=== PATIENT | female | born 1935 | race African-American/Black ===

== ENCOUNTER → 2017-01-26 | Outpatient (CLI) | payer MEDICARE, MEDICAID ==
[~2017-01-26] MED LIST: ALBU2.5V13 IH; ASPI-1035; ASPI-1073 PO; ATOR20TA; BUME2TAB3; CELE200C; COLC0.6T66; FLUT1DIS3 IH; MONT10TA21; POTA20TA34; PVCXPC; TAM75 PO; TIOT18CA3 IH
[2017-01-26 14:48] LABS: HEMATOCRIT. 34.7 % (36.0-48.0); HEMOGLOBIN. 11.5 g/dL (12.0-16.0); MEAN CORPUSCULAR HEMOGLOBIN 29.9 pg (28.0-32.0); MEAN CORPUSCULAR HGB CONC 33.1 g/dL (31.0-37.0); MEAN CORPUSCULAR VOLUME 90.4 fL (81.0-99.0); MEAN PLATELET VOLUME 7.5 fl (7.4-10.4); PLATELET 192 x1000/uL (130-400); RED BLOOD CELL COUNT 3.83 mill/uL (4.2-5.4); RED CELL DISTRIBUTION WIDTH 14.2 % (11.6-14.6); WHITE BLOOD COUNT 3.7 x1000/uL (4.5-11.0)
[2017-01-26 14:49] LABS: DIFFERENTIAL COMMENT 1
[2017-01-26 15:03] LABS: BG BASE EXCESS 0.2 mmol/L (-2.0-2.0); BG CARBOXYHEMOGLOBIN 0.3 % (0.5-1.5); BG DEOXYHEMOGLOBIN 2.9 % (0.0-5.0); BG FRACTION INSPIRED OXYGEN 21; BG HCO3 ACT 24.6 mmol/L (22.0-26.0); BG METHEMOGLOBIN 0.3 % (0.0-1.5); BG OXYGEN SATURATION 97.1 % (92.0-98.5); BG OXYHEMOGLOBIN 96.5 % (94.0-97.0); BG PH 7.418 (7.350-7.450); BG PO2 92.7 mmHg (75.0-100.0); BG SAMPLE SITE RIGHT RADIAL; BG VENT MODE ROOM AIR
[2017-01-26 15:24] LABS: ALANINE AMINOTRANSFERASE 21 IU/L (13-61); ALBUMIN 3.4 g/dL (3.4-5.0); ANION GAP 12; CALCIUM 8.9 mg/dL (8.5-10.1); CARBON DIOXIDE 28 mEq/L (21-32); CHLORIDE 99 mEq/L (98-107); INDEX HEMOLYSI 1 (1-3); INDEX ICTERIC 1 (1-4); INDEX LIPEMIC 1 (1-3); UREA NITROGEN BLOOD 11 mg/dL (7-21); eGFR > 60 mL/min (>60)
[2017-01-26 15:39] LABS: PLATELET ESTIMATE NORMAL
== END | disposition home or self-care (01) ==
LOC: PF 14:06
PROVIDERS: ATTEND Internal Medicine Pulmonary Disease
DX: J45.909 Unspecified asthma, uncomplicated (principal); M81.0 Age-related osteoporosis without current pathological fracture; F03.90 Unspecified dementia, unspecified severity, without behavioral disturbance, psychotic disturbance, mood disturbance, and anxiety; J84.112 Idiopathic pulmonary fibrosis
CPT/HCPCS: 36415; 36600; 80053; 82375; 82805; 85025

== ENCOUNTER 2018-09-23 14:28 | Inpatient (IN) | payer MEDICARE, MEDICAID ==
[~2018-09-23] VITALS: Ht 157.5 cm; Wt 74.8 kg
[~2018-09-23 14:28] MED LIST changes: -ASPI-1035; +ASPI-1158
[2018-09-23] MEDS ORDERED: ONDANSETRON HCL 4MG TABLET PO PRN (16:30)
[2018-09-23] MEDS ORDERED: ACETAMINOPHEN 650MG/20.3ML UDC PO PRN (16:30)
[2018-09-23] MEDS ORDERED: CLONIDINE 0.1MG TABLET PO PRN (16:30)
[2018-09-23] MEDS: DOCUSATE SODIUM 100MG CAPSULE PO SCH (17:57)
[2018-09-23] MEDS: HYDROCODONE/ACETAMINOPHEN 5/325MG TABLET PO PRN ×2 (17:58→22:46)
[2018-09-23 18:05] VITALS: BP 123/47
[2018-09-23 18:07] VITALS: BP 123/47
[2018-09-23] MEDS ORDERED: BISACODYL 5MG TABLET PO PRN (18:45)
[2018-09-23] MEDS ORDERED: DOCUSATE SODIUM 100MG CAPSULE PO SCH (19:00)
[2018-09-23 20:00] VITALS: BP 132/61
[2018-09-23] MEDS ORDERED: NA PHOS,M-B/NA PHOS,DI-BA ENEMA 118ML PR PRN (21:00)
[2018-09-23] MEDS ORDERED: CEFOXITIN SODIUM 1 G in DEXTROSE 5% WATER 50 ML IV SCH (21:00)
[2018-09-23] MEDS: CEFOXITIN SODIUM 1 G in DEXTROSE 5% WATER 50 ML IV SCH (21:18)
[2018-09-24] MEDS: CEFOXITIN SODIUM 1 G in DEXTROSE 5% WATER 50 ML IV SCH ×3 (05:19→21:29)
[2018-09-24 08:00] VITALS: BP 117/43
[2018-09-24] MEDS ORDERED: FAMOTIDINE 20MG TABLET PO ONE (09:00)
[2018-09-24] MEDS ORDERED: ENOXAPARIN 40MG/0.4ML SYR SUBCUT SCH (09:00)
[2018-09-24] MEDS ORDERED: ENOXAPARIN 40MG/0.4ML SYR SUBCUT ONE (09:00)
[2018-09-24] MEDS: MEMANTINE HCL 5MG TABLET PO SCH (09:20)
[2018-09-24] MEDS: FAMOTIDINE 20MG TABLET PO SCH (09:21)
[2018-09-24] MEDS: DOCUSATE SODIUM 100MG CAPSULE PO SCH ×2 (09:21→17:32)
[2018-09-24] MEDS: HYDROCODONE/ACETAMINOPHEN 5/325MG TABLET PO PRN ×2 (09:22→21:29)
[2018-09-24 12:05] LABS: HEMATOCRIT. 26.2 % (36.0-48.0); HEMOGLOBIN. 8.8 g/dL (12.0-16.0); MEAN CORPUSCULAR HEMOGLOBIN 28.8 pg (28.0-32.0); MEAN CORPUSCULAR VOLUME 85.8 fL (81.0-99.0); PLATELET 230 x1000/uL (130-400); RED BLOOD CELL COUNT 3.05 mill/uL (4.2-5.4); RED CELL DISTRIBUTION WIDTH 16.1 % (11.6-14.6)
[2018-09-24 12:43] LABS: CHLORIDE 97 mEq/L (98-107)
[2018-09-24] MEDS: ENOXAPARIN 40MG/0.4ML SYR SUBCUT SCH (14:00)
[2018-09-24 14:35] LABS: PLATELET ESTIMATE NORMAL
[2018-09-24 14:41] LABS: CLARITY URINE CLEAR (CLEAR); COLOR URINE YELLOW (YELLOW); KETONES URINE NEGATIVE (NEGATIVE); LEUKOCYTE ESTERASE URINE NEGATIVE (NEGATIVE); NITRITE URINE NEGATIVE (NEGATIVE); OCCULT BLOOD URINE NEGATIVE (NEGATIVE); PH URINE 7.5 (4.5-8.0); PROTEIN URINE NEGATIVE (NEGATIVE); SPECIFIC GRAVITY URINE 1.012 (1.005-1.030)
[2018-09-24 20:00] VITALS: BP 154/58
[2018-09-25] MEDS: CEFOXITIN SODIUM 1 G in DEXTROSE 5% WATER 50 ML IV SCH ×3 (06:00→21:40)
[2018-09-25 08:02] VITALS: BP 144/56
[2018-09-25] MEDS: MEMANTINE HCL 5MG TABLET PO SCH (09:38)
[2018-09-25] MEDS: FAMOTIDINE 20MG TABLET PO SCH ×2 (09:38→21:40)
[2018-09-25] MEDS: DOCUSATE SODIUM 100MG CAPSULE PO SCH ×2 (09:38→17:52)
[2018-09-25] MEDS: HYDROCODONE/ACETAMINOPHEN 5/325MG TABLET PO PRN ×2 (09:45→20:18)
[2018-09-25] MEDS ORDERED: DONEPEZIL HCL 10MG TABLET PO NR (09:45)
[2018-09-25] MEDS ORDERED: CALCIUM CARBONATE 500MG TABLET CHEW PO NR (09:45)
[2018-09-25] MEDS: ERGOCALCIFEROL 50000UNITS CAPSULE PO SCH (11:34)
[2018-09-25] MEDS: IPRATROPIUM/ALBUTEROL 0.5-3(2.5)MG/3ML NEB HHN SCH ×2 (13:08→20:47)
[2018-09-25] MEDS: ENOXAPARIN 40MG/0.4ML SYR SUBCUT SCH (13:39)
[2018-09-25] MEDS: MONTELUKAST SODIUM 10MG TABLET PO SCH (17:52)
[2018-09-25] MEDS: CALCIUM CARBONATE 500MG TABLET CHEW PO SCH (17:53)
[2018-09-25 18:02] LABS: HEMATOCRIT. 29.7 % (36.0-48.0); MEAN CORPUSCULAR HEMOGLOBIN 29.2 pg (28.0-32.0); MEAN CORPUSCULAR VOLUME 86.4 fL (81.0-99.0); MEAN PLATELET VOLUME 7.4 fl (7.4-10.4); PLATELET 285 x1000/uL (130-400); RED BLOOD CELL COUNT 3.43 mill/uL (4.2-5.4)
[2018-09-25 18:10] LABS: CHLORIDE 98 mEq/L (98-107)
[2018-09-25 19:12] LABS: PLATELET ESTIMATE NORMAL
[2018-09-25 20:00] VITALS: BP 143/55
[2018-09-25] MEDS ORDERED: MAGNESIUM/ALUMINUM HYDROXIDE/SIMETHICONE 30ML UDC PO PRN (20:00)
[2018-09-25] MEDS ORDERED: ZOLPIDEM TARTRATE 5MG TABLET PO PRN (21:00)
[2018-09-25] MEDS: MEMANTINE HCL 10MG TABLET PO SCH (21:39)
[2018-09-26] MEDS: IPRATROPIUM/ALBUTEROL 0.5-3(2.5)MG/3ML NEB HHN SCH ×4 (01:43→22:41)
[2018-09-26] MEDS: CEFOXITIN SODIUM 1 G in DEXTROSE 5% WATER 50 ML IV SCH ×4 (05:43→21:00)
[2018-09-26 08:13] VITALS: BP 131/47
[2018-09-26] MEDS: CALCIUM CARBONATE 500MG TABLET CHEW PO SCH ×2 (08:16→17:27)
[2018-09-26] MEDS: DOCUSATE SODIUM 100MG CAPSULE PO SCH ×2 (08:16→17:27)
[2018-09-26] MEDS: MEMANTINE HCL 10MG TABLET PO SCH ×2 (08:17→20:55)
[2018-09-26] MEDS: MULTIVITAMINS,THER W-MINERALS TABLET PO SCH (08:17)
[2018-09-26] MEDS: FAMOTIDINE 20MG TABLET PO SCH ×2 (08:18→20:55)
[2018-09-26] MEDS: DONEPEZIL HCL 10MG TABLET PO SCH (08:18)
[2018-09-26] MEDS: HYDROCODONE/ACETAMINOPHEN 5/325MG TABLET PO PRN (08:27)
[2018-09-26] MEDS ORDERED: LACTULOSE 20G/30ML UDC PO SCH (09:15)
[2018-09-26] MEDS ORDERED: LACTULOSE 20G/30ML UDC PO PRN (09:15)
[2018-09-26] MEDS ORDERED: NA PHOS,M-B/NA PHOS,DI-BA ENEMA 118ML PR SCH (09:15)
[2018-09-26] MEDS: ENOXAPARIN 40MG/0.4ML SYR SUBCUT SCH (14:21)
[2018-09-26] MEDS: MONTELUKAST SODIUM 10MG TABLET PO SCH (17:27)
[2018-09-26 20:00] VITALS: BP 118/40
[2018-09-27] MEDS: IPRATROPIUM/ALBUTEROL 0.5-3(2.5)MG/3ML NEB HHN SCH ×4 (03:52→19:53)
[2018-09-27] MEDS: CEFOXITIN SODIUM 1 G in DEXTROSE 5% WATER 50 ML IV SCH ×3 (06:01→21:04)
[2018-09-27] MEDS: HYDROCODONE/ACETAMINOPHEN 5/325MG TABLET PO PRN ×2 (06:13→21:03)
[2018-09-27 07:57] VITALS: BP 133/45
[2018-09-27 09:26] LABS: CHLORIDE 97 mEq/L (98-107)
[2018-09-27] MEDS: COLCHICINE 0.6MG TABLET PO SCH (09:26)
[2018-09-27] MEDS: DONEPEZIL HCL 10MG TABLET PO SCH (09:26)
[2018-09-27] MEDS: MEMANTINE HCL 10MG TABLET PO SCH ×2 (09:26→21:04)
[2018-09-27] MEDS: CALCIUM CARBONATE 500MG TABLET CHEW PO SCH ×2 (09:27→17:39)
[2018-09-27] MEDS: DOCUSATE SODIUM 100MG CAPSULE PO SCH ×2 (09:27→17:39)
[2018-09-27] MEDS: MULTIVITAMINS,THER W-MINERALS TABLET PO SCH (09:27)
[2018-09-27] MEDS: FAMOTIDINE 20MG TABLET PO SCH ×2 (09:27→21:04)
[2018-09-27 13:18] LABS: HEMATOCRIT. 28.2 % (36.0-48.0); HEMOGLOBIN. 9.7 g/dL (12.0-16.0); MEAN CORPUSCULAR HEMOGLOBIN 29.6 pg (28.0-32.0); MEAN CORPUSCULAR VOLUME 86.2 fL (81.0-99.0); MEAN PLATELET VOLUME 7.4 fl (7.4-10.4); PLATELET 339 x1000/uL (130-400); RED BLOOD CELL COUNT 3.28 mill/uL (4.2-5.4)
[2018-09-27] MEDS: ENOXAPARIN 40MG/0.4ML SYR SUBCUT SCH (13:37)
[2018-09-27] MEDS: INDOMETHACIN 25MG CAPSULE PO SCH ×2 (14:33→21:03)
[2018-09-27 17:38] LABS: PLATELET ESTIMATE NORMAL
[2018-09-27] MEDS: MONTELUKAST SODIUM 10MG TABLET PO SCH (17:39)
[2018-09-27 20:00] VITALS: BP 120/36
[2018-09-28] MEDS: IPRATROPIUM/ALBUTEROL 0.5-3(2.5)MG/3ML NEB HHN SCH ×4 (01:37→20:42)
[2018-09-28] MEDS: INDOMETHACIN 25MG CAPSULE PO SCH ×3 (05:58→21:01)
[2018-09-28] MEDS: CEFOXITIN SODIUM 1 G in DEXTROSE 5% WATER 50 ML IV SCH ×3 (05:58→21:02)
[2018-09-28 08:00] VITALS: BP 135/51
[2018-09-28] MEDS ORDERED: HYDROCODONE/ACETAMINOPHEN 5/325MG TABLET PO PRN (08:30)
[2018-09-28] MEDS ORDERED: GUAIFENESIN 200MG/10ML SUGAR FREE UDC PO PRN (09:30)
[2018-09-28] MEDS: MULTIVITAMINS,THER W-MINERALS TABLET PO SCH (09:36)
[2018-09-28] MEDS: CALCIUM CARBONATE 500MG TABLET CHEW PO SCH ×2 (09:36→18:21)
[2018-09-28] MEDS: MEMANTINE HCL 10MG TABLET PO SCH ×2 (09:36→21:01)
[2018-09-28] MEDS: COLCHICINE 0.6MG TABLET PO SCH (09:36)
[2018-09-28] MEDS: DONEPEZIL HCL 10MG TABLET PO SCH (09:36)
[2018-09-28] MEDS: FAMOTIDINE 20MG TABLET PO SCH ×2 (09:36→21:01)
[2018-09-28] MEDS: DOCUSATE SODIUM 100MG CAPSULE PO SCH ×2 (09:36→18:21)
[2018-09-28] MEDS: BENZONATATE 100MG CAPSULE PO SCH ×2 (11:24→18:20)
[2018-09-28] MEDS: ENOXAPARIN 40MG/0.4ML SYR SUBCUT SCH (13:00)
[2018-09-28] MEDS: MONTELUKAST SODIUM 10MG TABLET PO SCH (18:21)
[2018-09-28 20:00] VITALS: BP 137/49
[2018-09-29] MEDS: IPRATROPIUM/ALBUTEROL 0.5-3(2.5)MG/3ML NEB HHN SCH ×4 (01:45→21:43)
[2018-09-29] MEDS: BENZONATATE 100MG CAPSULE PO SCH ×3 (01:52→17:47)
[2018-09-29] MEDS: INDOMETHACIN 25MG CAPSULE PO SCH ×3 (05:11→21:25)
[2018-09-29] MEDS: HYDROCODONE/ACETAMINOPHEN 5/325MG TABLET PO PRN (06:49)
[2018-09-29 08:00] VITALS: BP 126/47
[2018-09-29] MEDS: CALCIUM CARBONATE 500MG TABLET CHEW PO SCH ×2 (09:11→17:47)
[2018-09-29] MEDS: MEMANTINE HCL 10MG TABLET PO SCH ×2 (09:11→20:12)
[2018-09-29] MEDS: DONEPEZIL HCL 10MG TABLET PO SCH (09:11)
[2018-09-29] MEDS: MULTIVITAMINS,THER W-MINERALS TABLET PO SCH (09:11)
[2018-09-29] MEDS: FAMOTIDINE 20MG TABLET PO SCH ×2 (09:11→20:12)
[2018-09-29] MEDS: DOCUSATE SODIUM 100MG CAPSULE PO SCH ×2 (09:12→17:47)
[2018-09-29] MEDS: COLCHICINE 0.6MG TABLET PO SCH (09:16)
[2018-09-29] MEDS: ENOXAPARIN 40MG/0.4ML SYR SUBCUT SCH (13:34)
[2018-09-29] MEDS: MONTELUKAST SODIUM 10MG TABLET PO SCH (17:47)
[2018-09-29 20:00] VITALS: BP 126/43
[2018-09-30] MEDS: BENZONATATE 100MG CAPSULE PO SCH ×3 (01:16→17:02)
[2018-09-30] MEDS: IPRATROPIUM/ALBUTEROL 0.5-3(2.5)MG/3ML NEB HHN SCH ×4 (01:57→21:21)
[2018-09-30] MEDS: INDOMETHACIN 25MG CAPSULE PO SCH ×3 (05:14→21:02)
[2018-09-30 08:10] VITALS: BP 138/48
[2018-09-30] MEDS: CALCIUM CARBONATE 500MG TABLET CHEW PO SCH ×2 (09:33→17:02)
[2018-09-30] MEDS: MEMANTINE HCL 10MG TABLET PO SCH ×2 (09:34→21:02)
[2018-09-30] MEDS: COLCHICINE 0.6MG TABLET PO SCH (09:34)
[2018-09-30] MEDS: DOCUSATE SODIUM 100MG CAPSULE PO SCH ×2 (09:34→17:02)
[2018-09-30] MEDS: DONEPEZIL HCL 10MG TABLET PO SCH (09:34)
[2018-09-30] MEDS: FAMOTIDINE 20MG TABLET PO SCH ×2 (09:34→21:02)
[2018-09-30] MEDS: MULTIVITAMINS,THER W-MINERALS TABLET PO SCH (09:35)
[2018-09-30] MEDS: ENOXAPARIN 40MG/0.4ML SYR SUBCUT SCH (14:42)
[2018-09-30] MEDS: MONTELUKAST SODIUM 10MG TABLET PO SCH (17:02)
[2018-09-30 20:00] VITALS: BP_SYST 123; BP_SYST 126; BP_DIAS 30; BP_DIAS 39
[2018-09-30] MEDS: HYDROCODONE/ACETAMINOPHEN 5/325MG TABLET PO PRN (23:45)
[2018-10-01] MEDS: BENZONATATE 100MG CAPSULE PO SCH ×3 (02:30→17:04)
[2018-10-01] MEDS: IPRATROPIUM/ALBUTEROL 0.5-3(2.5)MG/3ML NEB HHN SCH ×4 (03:49→21:30)
[2018-10-01] MEDS: INDOMETHACIN 25MG CAPSULE PO SCH ×3 (06:01→22:01)
[2018-10-01 07:47] LABS: HEMATOCRIT. 24.9 % (36.0-48.0); HEMOGLOBIN. 8.5 g/dL (12.0-16.0); MEAN CORPUSCULAR HEMOGLOBIN 29.1 pg (28.0-32.0); MEAN CORPUSCULAR VOLUME 85.6 fL (81.0-99.0); MEAN PLATELET VOLUME 6.9 fl (7.4-10.4); PLATELET 367 x1000/uL (130-400); RED BLOOD CELL COUNT 2.91 mill/uL (4.2-5.4); RED CELL DISTRIBUTION WIDTH 16.1 % (11.6-14.6)
[2018-10-01 07:49] LABS: CHLORIDE 98 mEq/L (98-107)
[2018-10-01 08:00] VITALS: BP 136/46
[2018-10-01] MEDS: MEMANTINE HCL 10MG TABLET PO SCH ×2 (09:29→22:01)
[2018-10-01] MEDS: FAMOTIDINE 20MG TABLET PO SCH ×2 (09:29→22:00)
[2018-10-01] MEDS: DOCUSATE SODIUM 100MG CAPSULE PO SCH ×2 (09:29→17:04)
[2018-10-01] MEDS: DONEPEZIL HCL 10MG TABLET PO SCH (09:29)
[2018-10-01] MEDS: COLCHICINE 0.6MG TABLET PO SCH (09:29)
[2018-10-01] MEDS: MULTIVITAMINS,THER W-MINERALS TABLET PO SCH (09:29)
[2018-10-01] MEDS: CALCIUM CARBONATE 500MG TABLET CHEW PO SCH ×2 (09:29→17:04)
[2018-10-01 10:50] LABS: PLATELET ESTIMATE NORMAL
[2018-10-01] MEDS: ENOXAPARIN 40MG/0.4ML SYR SUBCUT SCH (13:20)
[2018-10-01] MEDS: MONTELUKAST SODIUM 10MG TABLET PO SCH (17:04)
[2018-10-01 20:00] VITALS: BP 136/56
[2018-10-02] MEDS: IPRATROPIUM/ALBUTEROL 0.5-3(2.5)MG/3ML NEB HHN SCH ×4 (01:54→21:36)
[2018-10-02] MEDS: BENZONATATE 100MG CAPSULE PO SCH ×3 (02:44→17:01)
[2018-10-02] MEDS: INDOMETHACIN 25MG CAPSULE PO SCH ×3 (06:38→21:34)
[2018-10-02 07:56] VITALS: BP 142/48
[2018-10-02] MEDS: COLCHICINE 0.6MG TABLET PO SCH ×2 (09:31→16:41)
[2018-10-02] MEDS: CALCIUM CARBONATE 500MG TABLET CHEW PO SCH ×2 (09:31→16:23)
[2018-10-02] MEDS: FAMOTIDINE 20MG TABLET PO SCH ×2 (09:31→21:35)
[2018-10-02] MEDS: MEMANTINE HCL 10MG TABLET PO SCH ×2 (09:31→21:35)
[2018-10-02] MEDS: MULTIVITAMINS,THER W-MINERALS TABLET PO SCH (09:31)
[2018-10-02] MEDS: DONEPEZIL HCL 10MG TABLET PO SCH (09:31)
[2018-10-02] MEDS: DOCUSATE SODIUM 100MG CAPSULE PO SCH ×2 (09:31→16:23)
[2018-10-02] MEDS: ERGOCALCIFEROL 50000UNITS CAPSULE PO SCH (09:49)
[2018-10-02] MEDS: LIDOCAINE HCL 4% CREAM 76GM TUBE TP SCH ×2 (10:46→16:39)
[2018-10-02 15:50] LABS: HEMATOCRIT. 28.3 % (36.0-48.0); HEMOGLOBIN. 9.5 g/dL (12.0-16.0); MEAN CORPUSCULAR HEMOGLOBIN 28.9 pg (28.0-32.0); MEAN CORPUSCULAR VOLUME 85.8 fL (81.0-99.0); MEAN PLATELET VOLUME 6.9 fl (7.4-10.4); PLATELET 419 x1000/uL (130-400); RED BLOOD CELL COUNT 3.29 mill/uL (4.2-5.4)
[2018-10-02 15:55] LABS: CHLORIDE 95 mEq/L (98-107)
[2018-10-02 16:03] LABS: TOTAL IRON BINDING CAPACITY 293 ug/dL (250-450)
[2018-10-02 16:17] LABS: PLATELET ESTIMATE INCREASED
[2018-10-02] MEDS: MONTELUKAST SODIUM 10MG TABLET PO SCH (16:23)
[2018-10-02 20:00] VITALS: BP 132/44
[2018-10-03] MEDS: BENZONATATE 100MG CAPSULE PO SCH ×4 (01:56→22:06)
[2018-10-03] MEDS: IPRATROPIUM/ALBUTEROL 0.5-3(2.5)MG/3ML NEB HHN SCH ×4 (02:14→20:51)
[2018-10-03] MEDS: INDOMETHACIN 25MG CAPSULE PO SCH ×3 (06:09→22:05)
[2018-10-03 08:00] VITALS: BP 146/54
[2018-10-03] MEDS: MULTIVITAMINS,THER W-MINERALS TABLET PO SCH (08:49)
[2018-10-03] MEDS: DONEPEZIL HCL 10MG TABLET PO SCH (08:49)
[2018-10-03] MEDS: FAMOTIDINE 20MG TABLET PO SCH ×2 (08:49→22:05)
[2018-10-03] MEDS: CALCIUM CARBONATE 500MG TABLET CHEW PO SCH ×2 (08:49→17:04)
[2018-10-03] MEDS: COLCHICINE 0.6MG TABLET PO SCH ×2 (08:50→17:05)
[2018-10-03] MEDS: MEMANTINE HCL 10MG TABLET PO SCH ×2 (08:50→22:06)
[2018-10-03] MEDS: DOCUSATE SODIUM 100MG CAPSULE PO SCH ×2 (08:50→17:05)
[2018-10-03] MEDS: LIDOCAINE HCL 4% CREAM 76GM TUBE TP SCH ×2 (08:51→17:05)
[2018-10-03 09:07] LABS: BASOPHILS % 0.7 % (0.0-2.0); EOSINOPHILS % 0.3 % (0.0-5.0); HEMATOCRIT. 31.6 % (36.0-48.0); HEMOGLOBIN. 10.7 g/dL (12.0-16.0); LYMPHOCYTES % 26.2 % (20.0-50.0); MEAN CORPUSCULAR HEMOGLOBIN 29.2 pg (28.0-32.0); MEAN CORPUSCULAR VOLUME 86.5 fL (81.0-99.0); MEAN PLATELET VOLUME 6.9 fl (7.4-10.4); MONOCYTES % 13.4 % (2.0-8.0); NEUTROPHILS % 59.4 % (40.0-76.0); PLATELET 467 x1000/uL (130-400); RED BLOOD CELL COUNT 3.65 mill/uL (4.2-5.4); RED CELL DISTRIBUTION WIDTH 16.2 % (11.6-14.6)
[2018-10-03 09:17] LABS: CHLORIDE 97 mEq/L (98-107)
[2018-10-03 13:16] VITALS: BP_SYST 121; BP_SYST 161; BP_DIAS 52
[2018-10-03] MEDS: MONTELUKAST SODIUM 10MG TABLET PO SCH (17:05)
[2018-10-03 20:00] VITALS: BP 145/59
[2018-10-04] MEDS: IPRATROPIUM/ALBUTEROL 0.5-3(2.5)MG/3ML NEB HHN SCH ×4 (02:09→21:38)
[2018-10-04] MEDS: INDOMETHACIN 25MG CAPSULE PO SCH ×3 (05:50→20:57)
[2018-10-04 08:04] VITALS: BP 141/39
[2018-10-04] MEDS: LIDOCAINE HCL 4% CREAM 76GM TUBE TP SCH ×2 (09:00→17:00)
[2018-10-04] MEDS: BENZONATATE 100MG CAPSULE PO SCH ×2 (09:19→18:07)
[2018-10-04] MEDS: FAMOTIDINE 20MG TABLET PO SCH ×2 (09:19→20:57)
[2018-10-04] MEDS: DOCUSATE SODIUM 100MG CAPSULE PO SCH ×2 (09:19→18:07)
[2018-10-04] MEDS: MEMANTINE HCL 10MG TABLET PO SCH ×2 (09:19→20:57)
[2018-10-04] MEDS: DONEPEZIL HCL 10MG TABLET PO SCH (09:19)
[2018-10-04] MEDS: MULTIVITAMINS,THER W-MINERALS TABLET PO SCH (09:19)
[2018-10-04] MEDS: CALCIUM CARBONATE 500MG TABLET CHEW PO SCH ×2 (09:19→18:07)
[2018-10-04] MEDS: COLCHICINE 0.6MG TABLET PO SCH ×2 (09:19→18:07)
[2018-10-04] MEDS: MONTELUKAST SODIUM 10MG TABLET PO SCH (18:07)
[2018-10-04 20:00] VITALS: BP 146/72
[2018-10-05] MEDS: BENZONATATE 100MG CAPSULE PO SCH ×3 (02:50→18:00)
[2018-10-05] MEDS: IPRATROPIUM/ALBUTEROL 0.5-3(2.5)MG/3ML NEB HHN SCH ×4 (04:03→21:27)
[2018-10-05] MEDS: INDOMETHACIN 25MG CAPSULE PO SCH ×3 (06:14→22:29)
[2018-10-05 07:59] VITALS: BP 137/51
[2018-10-05 08:22] LABS: HEMATOCRIT. 26.3 % (36.0-48.0); MEAN CORPUSCULAR HEMOGLOBIN 29.3 pg (28.0-32.0); MEAN CORPUSCULAR VOLUME 85.5 fL (81.0-99.0); MEAN PLATELET VOLUME 7.2 fl (7.4-10.4); PLATELET 410 x1000/uL (130-400); RED BLOOD CELL COUNT 3.07 mill/uL (4.2-5.4); RED CELL DISTRIBUTION WIDTH 15.9 % (11.6-14.6)
[2018-10-05] MEDS: FAMOTIDINE 20MG TABLET PO SCH ×2 (08:28→20:17)
[2018-10-05] MEDS: DONEPEZIL HCL 10MG TABLET PO SCH (08:28)
[2018-10-05] MEDS: MEMANTINE HCL 10MG TABLET PO SCH ×2 (08:28→20:17)
[2018-10-05] MEDS: DOCUSATE SODIUM 100MG CAPSULE PO SCH ×2 (08:28→17:40)
[2018-10-05] MEDS: CALCIUM CARBONATE 500MG TABLET CHEW PO SCH ×2 (08:28→17:40)
[2018-10-05] MEDS: MULTIVITAMINS,THER W-MINERALS TABLET PO SCH (08:28)
[2018-10-05] MEDS: LIDOCAINE HCL 4% CREAM 76GM TUBE TP SCH ×2 (08:28→17:40)
[2018-10-05 08:43] LABS: CHLORIDE 97 mEq/L (98-107)
[2018-10-05] MEDS: COLCHICINE 0.6MG TABLET PO SCH ×2 (09:04→17:40)
[2018-10-05 10:29] LABS: PLATELET ESTIMATE INCREASED
[2018-10-05] MEDS: MONTELUKAST SODIUM 10MG TABLET PO SCH (17:40)
[2018-10-05 20:00] VITALS: BP 137/51
[2018-10-06] MEDS: IPRATROPIUM/ALBUTEROL 0.5-3(2.5)MG/3ML NEB HHN SCH ×4 (01:16→20:43)
[2018-10-06] MEDS: BENZONATATE 100MG CAPSULE PO SCH ×3 (02:00→17:52)
[2018-10-06] MEDS: INDOMETHACIN 25MG CAPSULE PO SCH ×3 (05:54→21:39)
[2018-10-06 07:46] VITALS: BP 141/57
[2018-10-06] MEDS: MULTIVITAMINS,THER W-MINERALS TABLET PO SCH (09:22)
[2018-10-06] MEDS: MEMANTINE HCL 10MG TABLET PO SCH ×2 (09:22→21:39)
[2018-10-06] MEDS: CALCIUM CARBONATE 500MG TABLET CHEW PO SCH ×2 (09:22→17:51)
[2018-10-06] MEDS: COLCHICINE 0.6MG TABLET PO SCH (09:22)
[2018-10-06] MEDS: FAMOTIDINE 20MG TABLET PO SCH ×2 (09:22→21:39)
[2018-10-06] MEDS: DOCUSATE SODIUM 100MG CAPSULE PO SCH ×2 (09:22→17:51)
[2018-10-06] MEDS: DONEPEZIL HCL 10MG TABLET PO SCH (09:23)
[2018-10-06] MEDS: LIDOCAINE HCL 4% CREAM 76GM TUBE TP SCH ×2 (09:30→17:54)
[2018-10-06] MEDS: MONTELUKAST SODIUM 10MG TABLET PO SCH (17:51)
[2018-10-06 20:00] VITALS: BP 139/50
[2018-10-07] MEDS: IPRATROPIUM/ALBUTEROL 0.5-3(2.5)MG/3ML NEB HHN SCH ×3 (01:30→13:36)
[2018-10-07] MEDS: BENZONATATE 100MG CAPSULE PO SCH ×2 (02:00→09:05)
[2018-10-07] MEDS: INDOMETHACIN 25MG CAPSULE PO SCH ×2 (06:24→13:17)
[2018-10-07 08:00] VITALS: BP 148/62
[2018-10-07 08:12] LABS: HEMATOCRIT. 26.1 % (36.0-48.0); HEMOGLOBIN. 8.8 g/dL (12.0-16.0); MEAN CORPUSCULAR HEMOGLOBIN 28.9 pg (28.0-32.0); MEAN PLATELET VOLUME 7.3 fl (7.4-10.4); PLATELET 359 x1000/uL (130-400); RED BLOOD CELL COUNT 3.03 mill/uL (4.2-5.4); RED CELL DISTRIBUTION WIDTH 15.8 % (11.6-14.6)
[2018-10-07] MEDS: DONEPEZIL HCL 10MG TABLET PO SCH (08:41)
[2018-10-07] MEDS: FAMOTIDINE 20MG TABLET PO SCH (08:41)
[2018-10-07] MEDS: LIDOCAINE HCL 4% CREAM 76GM TUBE TP SCH (08:41)
[2018-10-07] MEDS: DOCUSATE SODIUM 100MG CAPSULE PO SCH (08:41)
[2018-10-07] MEDS: MULTIVITAMINS,THER W-MINERALS TABLET PO SCH (08:41)
[2018-10-07] MEDS: MEMANTINE HCL 10MG TABLET PO SCH (08:42)
[2018-10-07] MEDS: CALCIUM CARBONATE 500MG TABLET CHEW PO SCH (08:42)
[2018-10-07 08:57] LABS: CHLORIDE 98 mEq/L (98-107)
[2018-10-07] MEDS ORDERED: COLCHICINE 0.6MG TABLET PO SCH (09:00)
[2018-10-07 12:15] LABS: PLATELET ESTIMATE NORMAL
[2018-10-07 15:26] VITALS: BP 148/62
== END 2018-10-07 16:00 | disposition home health service (06) | DRG 536 ==
PROVIDERS: ADMIT Psychiatry & Neurology Neurology; ATTEND Internal Medicine Geriatric Medicine
DX: S72.011A Unspecified intracapsular fracture of right femur, initial encounter for closed fracture (principal); N39.0 Urinary tract infection, site not specified; I50.32 Chronic diastolic (congestive) heart failure; E87.1 Hypo-osmolality and hyponatremia; M19.90 Unspecified osteoarthritis, unspecified site; K59.09 Other constipation; E11.9 Type 2 diabetes mellitus without complications; F02.80 Dementia in other diseases classified elsewhere, unspecified severity, without behavioral disturbance, psychotic disturbance, mood disturbance, and anxiety; G30.9 Alzheimer's disease, unspecified; I25.10 Atherosclerotic heart disease of native coronary artery without angina pectoris; Z96.652 Presence of left artificial knee joint; I70.0 Atherosclerosis of aorta; B96.20 Unspecified Escherichia coli [E. coli] as the cause of diseases classified elsewhere; R53.81 Other malaise; R41.0 Disorientation, unspecified; Z96.651 Presence of right artificial knee joint; R26.9 Unspecified abnormalities of gait and mobility; R33.9 Retention of urine, unspecified; F06.31 Mood disorder due to known physiological condition with depressive features; E78.5 Hyperlipidemia, unspecified; Z96.642 Presence of left artificial hip joint; M81.0 Age-related osteoporosis without current pathological fracture; J44.9 Chronic obstructive pulmonary disease, unspecified; I11.0 Hypertensive heart disease with heart failure; G47.00 Insomnia, unspecified; D64.9 Anemia, unspecified; R74.0 Nonspecific elevation of levels of transaminase and lactic acid dehydrogenase [LDH]; I80.8 Phlebitis and thrombophlebitis of other sites; Z60.2 Problems related to living alone; W18.39XA Other fall on same level, initial encounter; Y93.89 Activity, other specified; Z87.440 Personal history of urinary (tract) infections; Z79.899 Other long term (current) drug therapy; Z79.82 Long term (current) use of aspirin; Z91.81 History of falling; Y92.89 Other specified places as the place of occurrence of the external cause; Y99.8 Other external cause status
CPT/HCPCS: 36415; 73502; 80048; 80061; 82270; 82533; 83036; 83540; 83550; 83735; 83930; 84100; 84443; 84550; 93923; 93970; 94640; 97110; 97112; 97116; 97162; 97166; 97530; 97535; A6261; C1893; J0694; J1650; J7040; J7060; J7620

== ENCOUNTER 2021-10-06 13:47 | Inpatient (IN) | payer MEDICARE, MEDICAID ==
[~2021-10-06] VITALS: Ht 157.5 cm; Wt 70.8 kg
[2021-10-06] MEDS ORDERED: MORPHINE SULFATE 4 MG/ML CPJ (NOT FOR IM USE) IV STA (14:15)
[2021-10-06] MEDS ORDERED: ONDANSETRON HCL 4MG/2ML INJ IV STA (14:15)
[2021-10-06] MEDS ORDERED: SODIUM CHLORIDE 0.9% 500 ML IV ONE (14:15)
[2021-10-06 14:53] LABS: CHLORIDE 95 mEq/L (98-107)
[2021-10-06 14:55] LABS: BASOPHILS % 0.3 % (0.0-2.0); HEMATOCRIT. 43.2 % (36.0-48.0); HEMOGLOBIN. 14.6 g/dL (12.0-16.0); LYMPHOCYTES % 12.1 % (20.0-50.0); MEAN CORPUSCULAR HEMOGLOBIN 31.3 pg (28.0-32.0); MEAN CORPUSCULAR VOLUME 92.9 fL (81.0-99.0); MEAN PLATELET VOLUME 8.1 fl (7.4-10.4); MONOCYTES % 10.2 % (2.0-8.0); NEUTROPHILS % 77.4 % (40.0-76.0); PLATELET 204 x1000/uL (130-400); RED BLOOD CELL COUNT 4.65 mill/uL (4.2-5.4); RED CELL DISTRIBUTION WIDTH 15.9 % (11.6-14.6)
[2021-10-06 14:58] LABS: PROTHROMBIN TIME 10.7 sec (9.6-11.0)
[2021-10-06] MEDS ORDERED: FUROSEMIDE 20MG/2ML VIAL IVP ONE (15:45)
[2021-10-06] MEDS ORDERED: MAGNESIUM/ALUMINUM HYDROXIDE/SIMETHICONE 30ML UDC PO PRN (16:45)
[2021-10-06] MEDS ORDERED: HYDROCODONE/ACETAMINOPHEN 5/325MG TABLET PO PRN (16:45)
[2021-10-06] MEDS ORDERED: ENOXAPARIN 40MG/0.4ML SYR SUBCUT SCH (16:45)
[2021-10-06] MEDS ORDERED: HYDROMORPHONE HCL/PF 2MG/ML CPJ IV PRN (16:45)
[2021-10-06] MEDS ORDERED: ACETAMINOPHEN 325MG TABLET PO PRN (16:45)
[2021-10-06] MEDS ORDERED: ERGOCALCIFEROL 50000UNITS CAPSULE PO SCH (17:00)
[2021-10-06] MEDS ORDERED: NALOXONE HCL 0.4MG/ML VIAL IV PRN (17:00)
[2021-10-06] MEDS: ENOXAPARIN 30MG/0.3ML SYR SUBCUT SCH (17:38)
[2021-10-06] MEDS: POTASSIUM CHLORIDE 20MEQ TABLET SR PO SCH (17:39)
[2021-10-06] MEDS ORDERED: ZOLPIDEM TARTRATE 5MG TABLET PO PRN (21:00)
[2021-10-06] MEDS: SENNOSIDES/DOCUSATE SOD 8.6/50MG TABLET PO SCH (21:00)
[2021-10-06] MEDS: MEMANTINE HCL 10MG TABLET PO SCH (21:00)
[2021-10-07] MEDS: CLONIDINE 0.1MG TABLET PO PRN (02:08)
[2021-10-07 02:42] LABS: CLARITY URINE CLEAR (CLEAR); COLOR URINE YELLOW (YELLOW); KETONES URINE NEGATIVE (NEGATIVE); LEUKOCYTE ESTERASE URINE NEGATIVE (NEGATIVE); NITRITE URINE NEGATIVE (NEGATIVE); OCCULT BLOOD URINE NEGATIVE (NEGATIVE); PROTEIN URINE NEGATIVE (NEGATIVE); SPECIFIC GRAVITY URINE 1.007 (1.005-1.030); UROBILINOGEN URINE 0.2 E.U./dL (0.2-1.0)
[2021-10-07 07:36] LABS: HEMATOCRIT. 33.4 % (36.0-48.0); HEMOGLOBIN. 11.6 g/dL (12.0-16.0); MEAN CORPUSCULAR HEMOGLOBIN 32.1 pg (28.0-32.0); MEAN CORPUSCULAR VOLUME 92.7 fL (81.0-99.0); PLATELET 216 x1000/uL (130-400); RED CELL DISTRIBUTION WIDTH 15.5 % (11.6-14.6)
[2021-10-07 07:45] LABS: CHLORIDE 99 mEq/L (98-107)
[2021-10-07] MEDS: FUROSEMIDE 40MG/4ML VIAL IVP SCH (09:07)
[2021-10-07] MEDS: POTASSIUM CHLORIDE 20MEQ TABLET SR PO SCH (09:07)
[2021-10-07] MEDS: MEMANTINE HCL 10MG TABLET PO SCH ×2 (10:16→20:51)
[2021-10-07] MEDS: DONEPEZIL HCL 10MG TABLET PO SCH (10:16)
[2021-10-07] MEDS: VALACYCLOVIR HCL 500MG TABLET PO SCH ×2 (10:19→20:51)
[2021-10-07 11:26] VITALS: BP 147/80
[2021-10-07 12:00] VITALS: BP 147/60
[2021-10-07] MEDS: CALCIUM 1250MG TABLET (500MG ELEMENTAL CALCIUM) PO SCH (13:34)
[2021-10-07] MEDS ORDERED: POTA-9 PO (14:42)
[2021-10-07] MEDS ORDERED: MULT-1116 MT (14:42)
[2021-10-07] MEDS ORDERED: CALC-1042 PO (14:42)
[2021-10-07] MEDS ORDERED: ASPI-1497 PO (14:42)
[2021-10-07] MEDS ORDERED: PIRF267C2 PO (14:42)
[2021-10-07] MEDS ORDERED: VALA100044 PO (14:42)
[2021-10-07] MEDS ORDERED: ALEN70TA79 PO (14:42)
[2021-10-07] MEDS ORDERED: DIFL5DRO EACHEYE (14:42)
[2021-10-07] MEDS ORDERED: FAMO20TA8 PO (14:42)
[2021-10-07] MEDS ORDERED: MELO-106 PO (14:42)
[2021-10-07] MEDS ORDERED: ATOR20TA PO (14:42)
[2021-10-07] MEDS ORDERED: [UNRECOGNIZED DRUG - CODE] PO (14:42)
[2021-10-07] MEDS ORDERED: SODI15DR7 EACHEYE (14:42)
[2021-10-07] MEDS ORDERED: BUME2TAB7 PO (14:42)
[2021-10-07] MEDS ORDERED: FERR325T23 GT (14:42)
[2021-10-07 16:00] VITALS: BP 145/50
[2021-10-07] MEDS: DUREZOL 0.05% EYE DROPS OP SCH (16:43)
[2021-10-07] MEDS: FERROUS SULFATE 325MG TABLET PO SCH (17:31)
[2021-10-07] MEDS: ENOXAPARIN 30MG/0.3ML SYR SUBCUT SCH (17:31)
[2021-10-07 17:45] LABS: PLATELET ESTIMATE NORMAL
[2021-10-07] MEDS: POLYVINYL ALCOHOL OPHTH DROPS 15ML BOTHEYE SCH ×2 (18:48→18:49)
[2021-10-07 20:00] VITALS: BP 145/55
[2021-10-07] MEDS: IPRATROPIUM/ALBUTEROL 0.5-3(2.5)MG/3ML NEB HHN SCH (20:25)
[2021-10-07] MEDS: SENNOSIDES/DOCUSATE SOD 8.6/50MG TABLET PO SCH (20:51)
[2021-10-08] VITALS: BP 146/90
[2021-10-08] MEDS: IPRATROPIUM/ALBUTEROL 0.5-3(2.5)MG/3ML NEB HHN SCH ×5 (00:17→20:32)
[2021-10-08] MEDS: POLYVINYL ALCOHOL OPHTH DROPS 15ML BOTHEYE SCH ×3 (00:58→17:15)
[2021-10-08 07:42] LABS: BASOPHILS % 0.4 % (0.0-2.0); HEMATOCRIT. 35.4 % (36.0-48.0); HEMOGLOBIN. 11.9 g/dL (12.0-16.0); LYMPHOCYTES % 20.2 % (20.0-50.0); MEAN CORPUSCULAR HEMOGLOBIN 31.1 pg (28.0-32.0); MEAN CORPUSCULAR VOLUME 92.5 fL (81.0-99.0); MONOCYTES % 14.6 % (2.0-8.0); NEUTROPHILS % 64.8 % (40.0-76.0); PLATELET 225 x1000/uL (130-400); RED BLOOD CELL COUNT 3.82 mill/uL (4.2-5.4)
[2021-10-08 08:00] VITALS: BP 163/63
[2021-10-08 08:10] LABS: CHLORIDE 99 mEq/L (98-107)
[2021-10-08] MEDS ORDERED: MORPHINE SULFATE 2 MG/ML CPJ (NOT FOR IM USE) IV SCH (09:00)
[2021-10-08] MEDS: FERROUS SULFATE 325MG TABLET PO SCH ×3 (09:18→17:15)
[2021-10-08] MEDS: MEMANTINE HCL 10MG TABLET PO SCH ×2 (09:18→20:32)
[2021-10-08] MEDS: DONEPEZIL HCL 10MG TABLET PO SCH (09:18)
[2021-10-08] MEDS: FUROSEMIDE 40MG/4ML VIAL IVP SCH (09:18)
[2021-10-08] MEDS: POTASSIUM CHLORIDE 20MEQ TABLET SR PO SCH (09:19)
[2021-10-08] MEDS: CALCIUM 1250MG TABLET (500MG ELEMENTAL CALCIUM) PO SCH (09:19)
[2021-10-08] MEDS: DUREZOL 0.05% EYE DROPS OP SCH ×3 (09:19→17:15)
[2021-10-08] MEDS: VALACYCLOVIR HCL 500MG TABLET PO SCH ×2 (09:20→20:32)
[2021-10-08] MEDS: POLYETHYLENE GLYCOL 3350 (17GM) 1 DOSE PACK PO SCH (09:22)
[2021-10-08 12:00] VITALS: BP 158/67
[2021-10-08 16:00] VITALS: BP 115/64
[2021-10-08] MEDS: ENOXAPARIN 30MG/0.3ML SYR SUBCUT SCH (17:15)
[2021-10-08 20:00] VITALS: BP 137/60
[2021-10-08] MEDS: SENNOSIDES/DOCUSATE SOD 8.6/50MG TABLET PO SCH (20:21)
[2021-10-09] VITALS: BP 156/59
[2021-10-09] MEDS: POLYVINYL ALCOHOL OPHTH DROPS 15ML BOTHEYE SCH ×4 (00:15→16:54)
[2021-10-09] MEDS: IPRATROPIUM/ALBUTEROL 0.5-3(2.5)MG/3ML NEB HHN SCH ×3 (00:29→15:33)
[2021-10-09 04:00] VITALS: BP 115/72
[2021-10-09] MEDS: FERROUS SULFATE 325MG TABLET PO SCH ×3 (06:42→16:54)
[2021-10-09 08:00] VITALS: BP 168/72
[2021-10-09] MEDS: POLYETHYLENE GLYCOL 3350 (17GM) 1 DOSE PACK PO SCH (08:42)
[2021-10-09] MEDS: VALACYCLOVIR HCL 500MG TABLET PO SCH (08:43)
[2021-10-09] MEDS: CALCIUM 1250MG TABLET (500MG ELEMENTAL CALCIUM) PO SCH (08:44)
[2021-10-09] MEDS: CLONIDINE 0.1MG TABLET PO PRN (08:44)
[2021-10-09] MEDS: DUREZOL 0.05% EYE DROPS OP SCH ×3 (08:44→16:53)
[2021-10-09] MEDS: DONEPEZIL HCL 10MG TABLET PO SCH (08:44)
[2021-10-09] MEDS: MEMANTINE HCL 10MG TABLET PO SCH (08:44)
[2021-10-09] MEDS: FUROSEMIDE 40MG/4ML VIAL IVP SCH (08:44)
[2021-10-09] MEDS: POTASSIUM CHLORIDE 20MEQ TABLET SR PO SCH (08:44)
[2021-10-09] MEDS ORDERED: MORPHINE SULFATE 2 MG/ML CPJ (NOT FOR IM USE) IV PRN (09:15)
[2021-10-09] MEDS ORDERED: AMLODIPINE 2.5MG TABLET PO SCH (09:15)
[2021-10-09] MEDS ORDERED: LIDOCAINE 5% PATCH TOP SCH (09:30)
[2021-10-09 12:00] VITALS: BP 124/67
[2021-10-09 16:00] VITALS: BP 125/57
[2021-10-09] MEDS: ENOXAPARIN 30MG/0.3ML SYR SUBCUT SCH (16:54)
[2021-10-09] MEDS ORDERED: ATORVASTATIN CALCIUM 10MG TABLET PO SCH (21:00)
[2021-10-13] MEDS ORDERED: FLUTICASONE/VILANTEROL 200-25 BLST.W.DEV ORI SCH (09:00)
== END 2021-10-09 17:10 | DRG 183 ==
LOC: ER 13:47 → EDBEDREQ 16:03 → EDBEDREQTM 16:03 → MICUSO 20:34 → 8WST 10-07 12:04
PROVIDERS: ADMIT Internal Medicine Geriatric Medicine; ATTEND Internal Medicine Geriatric Medicine
DX: S22.42XA Multiple fractures of ribs, left side, initial encounter for closed fracture (principal); I50.23 Acute on chronic systolic (congestive) heart failure; E87.1 Hypo-osmolality and hyponatremia; J84.9 Interstitial pulmonary disease, unspecified; D50.9 Iron deficiency anemia, unspecified; E78.5 Hyperlipidemia, unspecified; I11.0 Hypertensive heart disease with heart failure; J44.9 Chronic obstructive pulmonary disease, unspecified; J84.10 Pulmonary fibrosis, unspecified; M81.0 Age-related osteoporosis without current pathological fracture; Z96.659 Presence of unspecified artificial knee joint; E78.00 Pure hypercholesterolemia, unspecified; W18.39XA Other fall on same level, initial encounter; Y93.89 Activity, other specified; Y92.89 Other specified places as the place of occurrence of the external cause; Y99.8 Other external cause status
CPT/HCPCS: 36415; 71045; 71250; 74176; 80048; 80053; 80061; 81003; 82270; 83540; 83550; 83735; 83880; 84484; 85025; 93005; 93306; 93970; 97162; 97166; 97535; 99291; J1170; J1650; J1940; J2270; J2405; J7040

== ENCOUNTER 2021-10-09 17:15 | Inpatient (IN) | payer MEDICARE, MEDICAID ==
[~2021-10-09] VITALS: Ht 157.5 cm; Wt 70.8 kg
[~2021-10-09 17:15] MED LIST changes: -ALBU2.5V13 IH; +ALEN70TA79 PO; -ASPI-1073 PO; -ASPI-1158; +ASPI-1497 PO; -ATOR20TA; +ATOR20TA PO; -BUME2TAB3; +BUME2TAB7 PO; +CALC-1042 PO; -CELE200C; -COLC0.6T66; +DIFL5DRO EACHEYE; +FAMO20TA8 PO; +FERR325T23 GT; -FLUT1DIS3 IH; +MELO-106 PO; -MONT10TA21; +MULT-1116 MT; +PIRF267C2 PO; +POTA-9 PO; -POTA20TA34; -PVCXPC; +SODI15DR7 EACHEYE; -TAM75 PO; -TIOT18CA3 IH; +VALA100044 PO; +[UNRECOGNIZED DRUG - CODE] PO
[2021-10-09 18:00] VITALS: BP 141/56
[2021-10-09] MEDS ORDERED: LACTULOSE 20G/30ML UDC PO PRN (18:45)
[2021-10-09] MEDS ORDERED: SENNOSIDES/DOCUSATE SOD 8.6/50MG TABLET PO PRN (18:45)
[2021-10-09 20:00] VITALS: BP 140/68
[2021-10-09] MEDS ORDERED: MORPHINE SULFATE 2 MG/ML CPJ (NOT FOR IM USE) IV PRN (20:00)
[2021-10-09] MEDS ORDERED: ZOLPIDEM TARTRATE 5MG TABLET PO PRN (20:00)
[2021-10-09] MEDS ORDERED: ACETAMINOPHEN 650MG/20.3ML UDC PO PRN (20:00)
[2021-10-09] MEDS ORDERED: CLONIDINE 0.1MG TABLET PO PRN (20:00)
[2021-10-09] MEDS: SENNOSIDES/DOCUSATE SOD 8.6/50MG TABLET PO SCH (21:46)
[2021-10-09] MEDS: ATORVASTATIN CALCIUM 10MG TABLET PO SCH (21:46)
[2021-10-09] MEDS: VALACYCLOVIR HCL 500MG TABLET PO SCH (21:47)
[2021-10-09] MEDS: MEMANTINE HCL 10MG TABLET PO SCH (21:49)
[2021-10-09] MEDS: HYDROCODONE/ACETAMINOPHEN 5/325MG TABLET PO PRN (21:49)
[2021-10-09] MEDS: POLYVINYL ALCOHOL OPHTH DROPS 15ML BOTHEYE SCH (23:33)
[2021-10-10] MEDS: IPRATROPIUM/ALBUTEROL 0.5-3(2.5)MG/3ML NEB HHN SCH ×5 (00:59→21:26)
[2021-10-10] MEDS: POLYVINYL ALCOHOL OPHTH DROPS 15ML BOTHEYE SCH ×3 (05:32→17:14)
[2021-10-10 08:00] VITALS: BP 137/57
[2021-10-10] MEDS ORDERED: DUREZOL 0.05% EYE DROPS RIGHTEYE SCH (09:00)
[2021-10-10] MEDS: HYDROCODONE/ACETAMINOPHEN 5/325MG TABLET PO PRN ×2 (09:41→18:23)
[2021-10-10] MEDS: POTASSIUM CHLORIDE 20MEQ TABLET SR PO SCH (09:41)
[2021-10-10] MEDS: CALCIUM 1250MG TABLET (500MG ELEMENTAL CALCIUM) PO SCH (09:42)
[2021-10-10] MEDS: POLYETHYLENE GLYCOL 3350 (17GM) 1 DOSE PACK PO SCH (09:42)
[2021-10-10] MEDS: FERROUS SULFATE 325MG TABLET PO SCH ×3 (09:42→17:13)
[2021-10-10] MEDS: DONEPEZIL HCL 10MG TABLET PO SCH (09:42)
[2021-10-10] MEDS: AMLODIPINE 2.5MG TABLET PO SCH (09:43)
[2021-10-10] MEDS: MEMANTINE HCL 10MG TABLET PO SCH ×2 (09:43→21:57)
[2021-10-10] MEDS: LIDOCAINE 5% PATCH TOP SCH (09:44)
[2021-10-10] MEDS: VALACYCLOVIR HCL 500MG TABLET PO SCH ×2 (09:46→21:58)
[2021-10-10] MEDS: DUREZOL 0.05% RIGHTEYE SCH ×3 (09:47→17:14)
[2021-10-10] MEDS: FUROSEMIDE 40MG/4ML VIAL IVP SCH (10:40)
[2021-10-10 10:43] LABS: BASOPHILS % 0.5 % (0.0-2.0); EOSINOPHILS % 0.1 % (0.0-5.0); HEMATOCRIT. 37.8 % (36.0-48.0); HEMOGLOBIN. 12.8 g/dL (12.0-16.0); LYMPHOCYTES % 10.5 % (20.0-50.0); MEAN CORPUSCULAR HEMOGLOBIN 32.1 pg (28.0-32.0); MEAN CORPUSCULAR VOLUME 94.9 fL (81.0-99.0); MEAN PLATELET VOLUME 7.9 fl (7.4-10.4); MONOCYTES % 13.4 % (2.0-8.0); NEUTROPHILS % 75.5 % (40.0-76.0); PLATELET 255 x1000/uL (130-400); RED BLOOD CELL COUNT 3.99 mill/uL (4.2-5.4); RED CELL DISTRIBUTION WIDTH 16.3 % (11.6-14.6)
[2021-10-10 11:56] LABS: CHLORIDE 96 mEq/L (98-107)
[2021-10-10] MEDS: ENOXAPARIN 30MG/0.3ML SYR SUBCUT SCH (17:13)
[2021-10-10 20:00] VITALS: BP 129/56
[2021-10-10] MEDS: ATORVASTATIN CALCIUM 10MG TABLET PO SCH (21:57)
[2021-10-10] MEDS: SENNOSIDES/DOCUSATE SOD 8.6/50MG TABLET PO SCH (22:01)
[2021-10-10 23:37] LABS: CLARITY URINE CLEAR (CLEAR); COLOR URINE YELLOW (YELLOW); KETONES URINE NEGATIVE (NEGATIVE); LEUKOCYTE ESTERASE URINE 1+ (NEGATIVE); NITRITE URINE NEGATIVE (NEGATIVE); OCCULT BLOOD URINE NEGATIVE (NEGATIVE); PH URINE 6.5 (4.5-8.0); PROTEIN URINE NEGATIVE (NEGATIVE); SPECIFIC GRAVITY URINE 1.016 (1.005-1.030); UROBILINOGEN URINE 0.2 E.U./dL (0.2-1.0)
[2021-10-11] MEDS: POLYVINYL ALCOHOL OPHTH DROPS 15ML BOTHEYE SCH ×5 (00:19→23:46)
[2021-10-11] MEDS: IPRATROPIUM/ALBUTEROL 0.5-3(2.5)MG/3ML NEB HHN SCH ×6 (04:00→21:02)
[2021-10-11 08:00] VITALS: BP 139/61
[2021-10-11] MEDS: FUROSEMIDE 40MG/4ML VIAL IVP SCH (10:22)
[2021-10-11] MEDS: DONEPEZIL HCL 10MG TABLET PO SCH (10:23)
[2021-10-11] MEDS: FERROUS SULFATE 325MG TABLET PO SCH ×3 (10:23→16:56)
[2021-10-11] MEDS: POTASSIUM CHLORIDE 20MEQ TABLET SR PO SCH (10:24)
[2021-10-11] MEDS: POLYETHYLENE GLYCOL 3350 (17GM) 1 DOSE PACK PO SCH (10:24)
[2021-10-11] MEDS: MEMANTINE HCL 10MG TABLET PO SCH ×2 (10:24→21:41)
[2021-10-11] MEDS: AMLODIPINE 2.5MG TABLET PO SCH (10:25)
[2021-10-11] MEDS: CALCIUM 1250MG TABLET (500MG ELEMENTAL CALCIUM) PO SCH (10:25)
[2021-10-11] MEDS: VALACYCLOVIR HCL 500MG TABLET PO SCH ×2 (10:26→21:41)
[2021-10-11] MEDS: LIDOCAINE 5% PATCH TOP SCH (10:27)
[2021-10-11] MEDS: MAGNESIUM/ALUMINUM HYDROXIDE/SIMETHICONE 30ML UDC PO PRN (10:28)
[2021-10-11] MEDS: HYDROCODONE/ACETAMINOPHEN 5/325MG TABLET PO PRN (10:29)
[2021-10-11] MEDS: DUREZOL 0.05% RIGHTEYE SCH ×3 (10:31→16:57)
[2021-10-11] MEDS: ACETAMINOPHEN 325MG TABLET PO PRN (13:22)
[2021-10-11 13:49] LABS: CHLORIDE 93 mEq/L (98-107)
[2021-10-11] MEDS: ENOXAPARIN 30MG/0.3ML SYR SUBCUT SCH (16:59)
[2021-10-11] MEDS ORDERED: NALOXONE HCL 0.4MG/ML VIAL IV PRN (17:00)
[2021-10-11 20:00] VITALS: BP 125/43
[2021-10-11] MEDS: SENNOSIDES/DOCUSATE SOD 8.6/50MG TABLET PO SCH (21:00)
[2021-10-11] MEDS: ATORVASTATIN CALCIUM 10MG TABLET PO SCH (21:41)
[2021-10-12] MEDS: IPRATROPIUM/ALBUTEROL 0.5-3(2.5)MG/3ML NEB HHN SCH ×5 (01:14→20:57)
[2021-10-12] MEDS: POLYVINYL ALCOHOL OPHTH DROPS 15ML BOTHEYE SCH ×3 (06:16→18:22)
[2021-10-12 08:00] VITALS: BP 131/52
[2021-10-12] MEDS ORDERED: FLUTICASONE/VILANTEROL 200-25 BLST.W.DEV ORI SCH (09:30)
[2021-10-12] MEDS: DONEPEZIL HCL 10MG TABLET PO SCH (09:43)
[2021-10-12] MEDS: POLYETHYLENE GLYCOL 3350 (17GM) 1 DOSE PACK PO SCH (09:43)
[2021-10-12] MEDS: POTASSIUM CHLORIDE 20MEQ TABLET SR PO SCH (09:43)
[2021-10-12] MEDS: FERROUS SULFATE 325MG TABLET PO SCH ×3 (09:43→16:42)
[2021-10-12] MEDS: MEMANTINE HCL 10MG TABLET PO SCH ×2 (09:44→22:17)
[2021-10-12] MEDS: FUROSEMIDE 20MG TABLET PO SCH (09:44)
[2021-10-12] MEDS: AMLODIPINE 2.5MG TABLET PO SCH (09:44)
[2021-10-12] MEDS: CALCIUM 1250MG TABLET (500MG ELEMENTAL CALCIUM) PO SCH (09:45)
[2021-10-12] MEDS: VALACYCLOVIR HCL 500MG TABLET PO SCH ×2 (09:49→22:18)
[2021-10-12] MEDS: LIDOCAINE 5% PATCH TOP SCH (09:49)
[2021-10-12] MEDS: DUREZOL 0.05% RIGHTEYE SCH ×3 (09:51→18:22)
[2021-10-12] MEDS: BUDESONIDE 0.5MG/2ML NEB HHN SCH ×2 (16:31→20:57)
[2021-10-12] MEDS: HYDROCODONE/ACETAMINOPHEN 5/325MG TABLET PO PRN (16:38)
[2021-10-12] MEDS: MONTELUKAST SODIUM 10MG TABLET PO SCH (18:17)
[2021-10-12] MEDS: ENOXAPARIN 30MG/0.3ML SYR SUBCUT SCH (18:17)
[2021-10-12 20:00] VITALS: BP 130/50
[2021-10-12] MEDS: ATORVASTATIN CALCIUM 10MG TABLET PO SCH (22:17)
[2021-10-12] MEDS: SENNOSIDES/DOCUSATE SOD 8.6/50MG TABLET PO SCH (22:17)
[2021-10-13] MEDS: POLYVINYL ALCOHOL OPHTH DROPS 15ML BOTHEYE SCH ×5 (00:38→23:25)
[2021-10-13] MEDS: IPRATROPIUM/ALBUTEROL 0.5-3(2.5)MG/3ML NEB HHN SCH ×5 (03:55→19:53)
[2021-10-13 06:56] LABS: HEMATOCRIT. 32.6 % (36.0-48.0); HEMOGLOBIN. 11.3 g/dL (12.0-16.0); MEAN CORPUSCULAR HEMOGLOBIN 32.4 pg (28.0-32.0); MEAN CORPUSCULAR VOLUME 93.4 fL (81.0-99.0); PLATELET 247 x1000/uL (130-400); RED BLOOD CELL COUNT 3.49 mill/uL (4.2-5.4); RED CELL DISTRIBUTION WIDTH 15.9 % (11.6-14.6)
[2021-10-13 08:00] VITALS: BP 147/57
[2021-10-13 09:07] LABS: CHLORIDE 99 mEq/L (98-107)
[2021-10-13] MEDS: FUROSEMIDE 20MG TABLET PO SCH (09:18)
[2021-10-13] MEDS: CALCIUM 1250MG TABLET (500MG ELEMENTAL CALCIUM) PO SCH (09:19)
[2021-10-13] MEDS: ERGOCALCIFEROL 50000UNITS CAPSULE PO SCH (09:19)
[2021-10-13] MEDS: DONEPEZIL HCL 10MG TABLET PO SCH (09:19)
[2021-10-13] MEDS: POTASSIUM CHLORIDE 20MEQ TABLET SR PO SCH (09:19)
[2021-10-13] MEDS: AMLODIPINE 2.5MG TABLET PO SCH (09:19)
[2021-10-13] MEDS: MEMANTINE HCL 10MG TABLET PO SCH ×2 (09:20→20:29)
[2021-10-13] MEDS: FERROUS SULFATE 325MG TABLET PO SCH ×3 (09:20→17:54)
[2021-10-13] MEDS: MAGNESIUM/ALUMINUM HYDROXIDE/SIMETHICONE 30ML UDC PO PRN (09:20)
[2021-10-13] MEDS: HYDROCODONE/ACETAMINOPHEN 5/325MG TABLET PO PRN ×2 (09:25→18:00)
[2021-10-13] MEDS: DUREZOL 0.05% RIGHTEYE SCH ×3 (09:26→18:01)
[2021-10-13] MEDS: LIDOCAINE 5% PATCH TOP SCH (09:26)
[2021-10-13] MEDS: VALACYCLOVIR HCL 500MG TABLET PO SCH ×2 (09:27→20:29)
[2021-10-13] MEDS: POLYETHYLENE GLYCOL 3350 (17GM) 1 DOSE PACK PO SCH (09:33)
[2021-10-13] MEDS: BUDESONIDE 0.5MG/2ML NEB HHN SCH ×2 (13:04→19:54)
[2021-10-13] MEDS: CALCITONIN,SALMON, 3.7 ML NASAL SPRAY ONENSTRL SCH (14:37)
[2021-10-13] MEDS: MONTELUKAST SODIUM 10MG TABLET PO SCH (17:55)
[2021-10-13] MEDS: ENOXAPARIN 30MG/0.3ML SYR SUBCUT SCH (18:00)
[2021-10-13 20:00] VITALS: BP 130/41
[2021-10-13 20:11] LABS: PLATELET ESTIMATE NORMAL
[2021-10-13] MEDS: SENNOSIDES/DOCUSATE SOD 8.6/50MG TABLET PO SCH (20:29)
[2021-10-13] MEDS: ATORVASTATIN CALCIUM 10MG TABLET PO SCH (20:29)
[2021-10-14] MEDS: IPRATROPIUM/ALBUTEROL 0.5-3(2.5)MG/3ML NEB HHN SCH ×6 (00:03→21:31)
[2021-10-14] MEDS: POLYVINYL ALCOHOL OPHTH DROPS 15ML BOTHEYE SCH ×3 (05:55→17:50)
[2021-10-14 08:26] VITALS: BP 150/58
[2021-10-14] MEDS: FERROUS SULFATE 325MG TABLET PO SCH ×3 (09:00→17:12)
[2021-10-14] MEDS: DONEPEZIL HCL 10MG TABLET PO SCH (09:00)
[2021-10-14] MEDS: MEMANTINE HCL 10MG TABLET PO SCH ×2 (09:01→21:52)
[2021-10-14] MEDS: FUROSEMIDE 20MG TABLET PO SCH (09:01)
[2021-10-14] MEDS: POLYETHYLENE GLYCOL 3350 (17GM) 1 DOSE PACK PO SCH (09:01)
[2021-10-14] MEDS: AMLODIPINE 2.5MG TABLET PO SCH (09:02)
[2021-10-14] MEDS: CALCIUM 1250MG TABLET (500MG ELEMENTAL CALCIUM) PO SCH (09:02)
[2021-10-14] MEDS: LIDOCAINE 5% PATCH TOP SCH (09:03)
[2021-10-14] MEDS: MAGNESIUM/ALUMINUM HYDROXIDE/SIMETHICONE 30ML UDC PO PRN (09:03)
[2021-10-14] MEDS: HYDROCODONE/ACETAMINOPHEN 5/325MG TABLET PO PRN (09:04)
[2021-10-14] MEDS ORDERED: ZOLPIDEM TARTRATE 5MG TABLET PO PRN (09:30)
[2021-10-14] MEDS: BUDESONIDE 0.5MG/2ML NEB HHN SCH ×2 (11:51→21:29)
[2021-10-14] MEDS: CALCITONIN,SALMON, 3.7 ML NASAL SPRAY ONENSTRL SCH (12:23)
[2021-10-14] MEDS: POTASSIUM CHLORIDE 20MEQ TABLET SR PO SCH (12:23)
[2021-10-14] MEDS: VALACYCLOVIR HCL 500MG TABLET PO SCH ×2 (12:24→21:52)
[2021-10-14] MEDS: DUREZOL 0.05% RIGHTEYE SCH ×3 (13:00→17:13)
[2021-10-14] MEDS: ENOXAPARIN 40MG/0.4ML SYR SUBCUT SCH (17:12)
[2021-10-14] MEDS: MONTELUKAST SODIUM 10MG TABLET PO SCH (17:13)
[2021-10-14 20:00] VITALS: BP 137/47
[2021-10-14] MEDS: SENNOSIDES/DOCUSATE SOD 8.6/50MG TABLET PO SCH (21:52)
[2021-10-14] MEDS: ATORVASTATIN CALCIUM 10MG TABLET PO SCH (21:52)
[2021-10-15] MEDS: IPRATROPIUM/ALBUTEROL 0.5-3(2.5)MG/3ML NEB HHN SCH ×5 (01:20→16:00)
[2021-10-15] MEDS: POLYVINYL ALCOHOL OPHTH DROPS 15ML BOTHEYE SCH ×3 (05:30→18:44)
[2021-10-15] MEDS: BUDESONIDE 0.5MG/2ML NEB HHN SCH (07:41)
[2021-10-15 08:00] VITALS: BP 156/59
[2021-10-15] MEDS: POLYETHYLENE GLYCOL 3350 (17GM) 1 DOSE PACK PO SCH (09:50)
[2021-10-15] MEDS: FERROUS SULFATE 325MG TABLET PO SCH ×3 (09:50→16:24)
[2021-10-15] MEDS: POTASSIUM CHLORIDE 20MEQ TABLET SR PO SCH (09:50)
[2021-10-15] MEDS: FUROSEMIDE 20MG TABLET PO SCH (09:50)
[2021-10-15] MEDS: DONEPEZIL HCL 10MG TABLET PO SCH (09:50)
[2021-10-15] MEDS: MAGNESIUM/ALUMINUM HYDROXIDE/SIMETHICONE 30ML UDC PO PRN (09:51)
[2021-10-15] MEDS: AMLODIPINE 2.5MG TABLET PO SCH (09:51)
[2021-10-15] MEDS: MEMANTINE HCL 10MG TABLET PO SCH ×2 (09:51→22:24)
[2021-10-15] MEDS: CALCIUM 1250MG TABLET (500MG ELEMENTAL CALCIUM) PO SCH (09:51)
[2021-10-15] MEDS: ACETAMINOPHEN 325MG TABLET PO PRN (09:52)
[2021-10-15] MEDS: LIDOCAINE 5% PATCH TOP SCH (09:53)
[2021-10-15] MEDS: ENOXAPARIN 40MG/0.4ML SYR SUBCUT SCH (09:54)
[2021-10-15] MEDS: VALACYCLOVIR HCL 500MG TABLET PO SCH ×2 (10:07→22:19)
[2021-10-15] MEDS: DUREZOL 0.05% RIGHTEYE SCH ×3 (10:08→16:24)
[2021-10-15] MEDS: CALCITONIN,SALMON, 3.7 ML NASAL SPRAY ONENSTRL SCH (11:53)
[2021-10-15] MEDS: MONTELUKAST SODIUM 10MG TABLET PO SCH (16:24)
[2021-10-15 20:00] VITALS: BP 141/50
[2021-10-15] MEDS: ATORVASTATIN CALCIUM 10MG TABLET PO SCH (22:18)
[2021-10-15] MEDS: SENNOSIDES/DOCUSATE SOD 8.6/50MG TABLET PO SCH (22:19)
[2021-10-16] MEDS: POLYVINYL ALCOHOL OPHTH DROPS 15ML BOTHEYE SCH ×3 (05:50→19:01)
[2021-10-16] MEDS: BUDESONIDE 0.5MG/2ML NEB HHN SCH ×2 (07:17→20:58)
[2021-10-16] MEDS: IPRATROPIUM/ALBUTEROL 0.5-3(2.5)MG/3ML NEB HHN SCH ×3 (07:17→20:58)
[2021-10-16 08:00] VITALS: BP 133/58
[2021-10-16] MEDS: CALCITONIN,SALMON, 3.7 ML NASAL SPRAY ONENSTRL SCH (08:22)
[2021-10-16] MEDS: DONEPEZIL HCL 10MG TABLET PO SCH (08:22)
[2021-10-16] MEDS: CALCIUM 1250MG TABLET (500MG ELEMENTAL CALCIUM) PO SCH (08:23)
[2021-10-16] MEDS: POTASSIUM CHLORIDE 20MEQ TABLET SR PO SCH (08:23)
[2021-10-16] MEDS: FERROUS SULFATE 325MG TABLET PO SCH ×3 (08:23→18:59)
[2021-10-16] MEDS: VALACYCLOVIR HCL 500MG TABLET PO SCH ×2 (08:24→21:44)
[2021-10-16] MEDS: ENOXAPARIN 40MG/0.4ML SYR SUBCUT SCH (08:25)
[2021-10-16] MEDS: DUREZOL 0.05% RIGHTEYE SCH ×3 (08:25→19:00)
[2021-10-16] MEDS: LIDOCAINE 5% PATCH TOP SCH (08:27)
[2021-10-16] MEDS: FUROSEMIDE 20MG TABLET PO SCH (08:27)
[2021-10-16] MEDS: AMLODIPINE 2.5MG TABLET PO SCH (08:28)
[2021-10-16] MEDS: MEMANTINE HCL 10MG TABLET PO SCH ×2 (08:28→21:43)
[2021-10-16] MEDS: POLYETHYLENE GLYCOL 3350 (17GM) 1 DOSE PACK PO SCH (08:28)
[2021-10-16] MEDS: MAGNESIUM/ALUMINUM HYDROXIDE/SIMETHICONE 30ML UDC PO PRN (08:29)
[2021-10-16] MEDS: ACETAMINOPHEN 325MG TABLET PO PRN ×3 (08:30→21:43)
[2021-10-16] MEDS ORDERED: GUAIFENESIN 200MG/10ML SUGAR FREE UDC PO PRN (09:30)
[2021-10-16] MEDS ORDERED: FUROSEMIDE 40MG TABLET PO NR (09:30)
[2021-10-16] MEDS ORDERED: POTASSIUM CHLORIDE 10MEQ TABLET SR PO NR (09:30)
[2021-10-16 10:35] LABS: BASOPHILS % 0.6 % (0.0-2.0); HEMATOCRIT. 39.4 % (36.0-48.0); HEMOGLOBIN. 13.4 g/dL (12.0-16.0); LYMPHOCYTES % 14.3 % (20.0-50.0); MEAN CORPUSCULAR HEMOGLOBIN 32.4 pg (28.0-32.0); MEAN PLATELET VOLUME 7.5 fl (7.4-10.4); MONOCYTES % 12.2 % (2.0-8.0); NEUTROPHILS % 72.9 % (40.0-76.0); PLATELET 308 x1000/uL (130-400); RED BLOOD CELL COUNT 4.15 mill/uL (4.2-5.4)
[2021-10-16 11:00] LABS: CHLORIDE 99 mEq/L (98-107)
[2021-10-16] MEDS: GUAIFENESIN 600MG ER TABLET PO SCH ×2 (12:14→21:43)
[2021-10-16] MEDS: MONTELUKAST SODIUM 10MG TABLET PO SCH (18:59)
[2021-10-16 20:00] VITALS: BP 139/52
[2021-10-16] MEDS: SENNOSIDES/DOCUSATE SOD 8.6/50MG TABLET PO SCH (21:43)
[2021-10-16] MEDS: ATORVASTATIN CALCIUM 10MG TABLET PO SCH (21:43)
[2021-10-17] MEDS: POLYVINYL ALCOHOL OPHTH DROPS 15ML BOTHEYE SCH ×5 (05:58→23:17)
[2021-10-17 07:29] LABS: FOLIC ACID (FOLATE) SERUM 14.3 ng/mL (>5.38)
[2021-10-17] MEDS: BUDESONIDE 0.5MG/2ML NEB HHN SCH ×2 (08:11→21:29)
[2021-10-17] MEDS: IPRATROPIUM/ALBUTEROL 0.5-3(2.5)MG/3ML NEB HHN SCH ×3 (08:11→21:29)
[2021-10-17] MEDS: CALCITONIN,SALMON, 3.7 ML NASAL SPRAY ONENSTRL SCH (08:34)
[2021-10-17] MEDS: FERROUS SULFATE 325MG TABLET PO SCH ×3 (08:35→17:08)
[2021-10-17] MEDS: DONEPEZIL HCL 10MG TABLET PO SCH (08:35)
[2021-10-17] MEDS: POTASSIUM CHLORIDE 10MEQ TABLET SR PO SCH (08:41)
[2021-10-17] MEDS: FUROSEMIDE 40MG TABLET PO SCH (08:42)
[2021-10-17] MEDS: MEMANTINE HCL 10MG TABLET PO SCH ×2 (08:42→20:33)
[2021-10-17] MEDS: POLYETHYLENE GLYCOL 3350 (17GM) 1 DOSE PACK PO SCH (08:42)
[2021-10-17] MEDS: GUAIFENESIN 600MG ER TABLET PO SCH ×2 (08:42→20:33)
[2021-10-17] MEDS: AMLODIPINE 2.5MG TABLET PO SCH (08:43)
[2021-10-17] MEDS: CALCIUM 1250MG TABLET (500MG ELEMENTAL CALCIUM) PO SCH (08:43)
[2021-10-17] MEDS: VALACYCLOVIR HCL 500MG TABLET PO SCH ×2 (08:44→20:33)
[2021-10-17] MEDS: DUREZOL 0.05% RIGHTEYE SCH ×3 (08:44→17:09)
[2021-10-17] MEDS: ENOXAPARIN 40MG/0.4ML SYR SUBCUT SCH (08:45)
[2021-10-17] MEDS: MAGNESIUM/ALUMINUM HYDROXIDE/SIMETHICONE 30ML UDC PO PRN (08:46)
[2021-10-17] MEDS: LIDOCAINE 5% PATCH TOP SCH (08:46)
[2021-10-17] MEDS: ACETAMINOPHEN 325MG TABLET PO PRN (08:47)
[2021-10-17 10:57] LABS: CHLORIDE 96 mEq/L (98-107)
[2021-10-17 11:02] LABS: PHOSPHORUS 2.3 mg/dL (2.5-4.9)
[2021-10-17] MEDS: MONTELUKAST SODIUM 10MG TABLET PO SCH (17:08)
[2021-10-17 20:00] VITALS: BP 131/40
[2021-10-17] MEDS: SENNOSIDES/DOCUSATE SOD 8.6/50MG TABLET PO SCH (20:33)
[2021-10-17] MEDS: ATORVASTATIN CALCIUM 10MG TABLET PO SCH (20:34)
[2021-10-18] MEDS: POLYVINYL ALCOHOL OPHTH DROPS 15ML BOTHEYE SCH ×3 (05:35→18:21)
[2021-10-18] MEDS: CALCITONIN,SALMON, 3.7 ML NASAL SPRAY ONENSTRL SCH (08:16)
[2021-10-18] MEDS: DONEPEZIL HCL 10MG TABLET PO SCH (08:17)
[2021-10-18] MEDS: POTASSIUM CHLORIDE 10MEQ TABLET SR PO SCH (08:18)
[2021-10-18] MEDS: FUROSEMIDE 40MG TABLET PO SCH (08:18)
[2021-10-18] MEDS: FERROUS SULFATE 325MG TABLET PO SCH ×3 (08:18→17:06)
[2021-10-18] MEDS: MEMANTINE HCL 10MG TABLET PO SCH ×2 (08:19→20:30)
[2021-10-18] MEDS: GUAIFENESIN 600MG ER TABLET PO SCH ×2 (08:19→20:30)
[2021-10-18] MEDS: POLYETHYLENE GLYCOL 3350 (17GM) 1 DOSE PACK PO SCH (08:19)
[2021-10-18] MEDS: AMLODIPINE 2.5MG TABLET PO SCH (08:20)
[2021-10-18] MEDS: CALCIUM 1250MG TABLET (500MG ELEMENTAL CALCIUM) PO SCH (08:20)
[2021-10-18] MEDS: DUREZOL 0.05% RIGHTEYE SCH ×3 (08:21→17:07)
[2021-10-18] MEDS: VALACYCLOVIR HCL 500MG TABLET PO SCH ×2 (08:21→20:31)
[2021-10-18] MEDS: ENOXAPARIN 40MG/0.4ML SYR SUBCUT SCH (08:22)
[2021-10-18] MEDS: LIDOCAINE 5% PATCH TOP SCH (08:23)
[2021-10-18] MEDS: ACETAMINOPHEN 325MG TABLET PO PRN (08:24)
[2021-10-18] MEDS: MAGNESIUM/ALUMINUM HYDROXIDE/SIMETHICONE 30ML UDC PO PRN (08:24)
[2021-10-18 09:20] LABS: CHLORIDE 99 mEq/L (98-107)
[2021-10-18 09:27] LABS: PHOSPHORUS 2.8 mg/dL (2.5-4.9)
[2021-10-18 09:38] LABS: HEMATOCRIT. 33.9 % (36.0-48.0); HEMOGLOBIN. 11.6 g/dL (12.0-16.0); MEAN CORPUSCULAR HEMOGLOBIN 32.2 pg (28.0-32.0); MEAN CORPUSCULAR VOLUME 94.6 fL (81.0-99.0); PLATELET 268 x1000/uL (130-400); RED BLOOD CELL COUNT 3.58 mill/uL (4.2-5.4)
[2021-10-18] MEDS: BUDESONIDE 0.5MG/2ML NEB HHN SCH ×2 (10:12→21:09)
[2021-10-18] MEDS: IPRATROPIUM/ALBUTEROL 0.5-3(2.5)MG/3ML NEB HHN SCH ×3 (10:12→21:09)
[2021-10-18] MEDS: MONTELUKAST SODIUM 10MG TABLET PO SCH (17:06)
[2021-10-18 17:37] LABS: ATYPICAL LYMPHOCYTES 1
[2021-10-18 17:38] LABS: PLATELET ESTIMATE NORMAL
[2021-10-18 20:00] VITALS: BP 115/47
[2021-10-18] MEDS: SENNOSIDES/DOCUSATE SOD 8.6/50MG TABLET PO SCH (20:30)
[2021-10-18] MEDS: ATORVASTATIN CALCIUM 10MG TABLET PO SCH (20:30)
[2021-10-19] MEDS: POLYVINYL ALCOHOL OPHTH DROPS 15ML BOTHEYE SCH ×5 (00:35→22:29)
[2021-10-19 08:00] VITALS: BP 110/40
[2021-10-19] MEDS: CALCITONIN,SALMON, 3.7 ML NASAL SPRAY ONENSTRL SCH (08:10)
[2021-10-19] MEDS: DONEPEZIL HCL 10MG TABLET PO SCH (08:12)
[2021-10-19] MEDS: VALACYCLOVIR HCL 500MG TABLET PO SCH ×2 (08:13→20:35)
[2021-10-19] MEDS: FERROUS SULFATE 325MG TABLET PO SCH ×3 (08:13→18:20)
[2021-10-19] MEDS: POTASSIUM CHLORIDE 10MEQ TABLET SR PO SCH (08:13)
[2021-10-19] MEDS: FUROSEMIDE 40MG TABLET PO SCH (08:14)
[2021-10-19] MEDS: POLYETHYLENE GLYCOL 3350 (17GM) 1 DOSE PACK PO SCH (08:14)
[2021-10-19] MEDS: MEMANTINE HCL 10MG TABLET PO SCH ×2 (08:15→20:35)
[2021-10-19] MEDS: GUAIFENESIN 600MG ER TABLET PO SCH ×2 (08:15→20:35)
[2021-10-19] MEDS: CALCIUM 1250MG TABLET (500MG ELEMENTAL CALCIUM) PO SCH (08:16)
[2021-10-19] MEDS: DUREZOL 0.05% RIGHTEYE SCH ×3 (08:17→18:21)
[2021-10-19] MEDS: ENOXAPARIN 40MG/0.4ML SYR SUBCUT SCH (08:17)
[2021-10-19] MEDS: LIDOCAINE 5% PATCH TOP SCH (08:18)
[2021-10-19] MEDS: MAGNESIUM/ALUMINUM HYDROXIDE/SIMETHICONE 30ML UDC PO PRN (08:18)
[2021-10-19] MEDS: ACETAMINOPHEN 325MG TABLET PO PRN (08:18)
[2021-10-19] MEDS: AMLODIPINE 2.5MG TABLET PO SCH (09:00)
[2021-10-19] MEDS: MONTELUKAST SODIUM 10MG TABLET PO SCH (18:20)
[2021-10-19 20:00] VITALS: BP 118/61
[2021-10-19] MEDS: ATORVASTATIN CALCIUM 10MG TABLET PO SCH (20:35)
[2021-10-19] MEDS: SENNOSIDES/DOCUSATE SOD 8.6/50MG TABLET PO SCH (20:36)
[2021-10-20] MEDS: POLYVINYL ALCOHOL OPHTH DROPS 15ML BOTHEYE SCH ×2 (06:10→13:17)
[2021-10-20 08:27] VITALS: BP 138/56
[2021-10-20] MEDS: ERGOCALCIFEROL 50000UNITS CAPSULE PO SCH (08:41)
[2021-10-20] MEDS: POTASSIUM CHLORIDE 10MEQ TABLET SR PO SCH (08:41)
[2021-10-20] MEDS: MEMANTINE HCL 10MG TABLET PO SCH (08:41)
[2021-10-20] MEDS: ENOXAPARIN 40MG/0.4ML SYR SUBCUT SCH (08:41)
[2021-10-20] MEDS: DONEPEZIL HCL 10MG TABLET PO SCH (08:41)
[2021-10-20] MEDS: AMLODIPINE 2.5MG TABLET PO SCH (08:41)
[2021-10-20] MEDS: GUAIFENESIN 600MG ER TABLET PO SCH (08:42)
[2021-10-20] MEDS: POLYETHYLENE GLYCOL 3350 (17GM) 1 DOSE PACK PO SCH (08:42)
[2021-10-20] MEDS: FUROSEMIDE 40MG TABLET PO SCH (08:42)
[2021-10-20] MEDS: FERROUS SULFATE 325MG TABLET PO SCH ×2 (08:42→13:17)
[2021-10-20] MEDS: CALCIUM 1250MG TABLET (500MG ELEMENTAL CALCIUM) PO SCH (08:42)
[2021-10-20] MEDS: CALCITONIN,SALMON, 3.7 ML NASAL SPRAY ONENSTRL SCH (08:43)
[2021-10-20] MEDS: LIDOCAINE 5% PATCH TOP SCH (08:43)
[2021-10-20] MEDS: VALACYCLOVIR HCL 500MG TABLET PO SCH (08:43)
[2021-10-20] MEDS: DUREZOL 0.05% RIGHTEYE SCH ×2 (08:44→13:17)
[2021-10-20 09:33] VITALS: BP 138/56
[2021-10-20] MEDS: IPRATROPIUM/ALBUTEROL 0.5-3(2.5)MG/3ML NEB HHN SCH ×2 (10:19→13:21)
[2021-10-20] MEDS: BUDESONIDE 0.5MG/2ML NEB HHN SCH (10:24)
[2021-10-20] MEDS ORDERED: LIDOCAINE 5% PATCH TOP SCH (15:45)
[2021-10-22 17:06] LABS: 25-HYDROXY VITAMIN D3 4.9 ng/mL (.)
== END 2021-10-20 15:55 | disposition home health service (06) | DRG 183 ==
PROVIDERS: ADMIT Psychiatry & Neurology Neurology; ATTEND Internal Medicine Geriatric Medicine
DX: S22.42XA Multiple fractures of ribs, left side, initial encounter for closed fracture (principal); I50.23 Acute on chronic systolic (congestive) heart failure; E87.1 Hypo-osmolality and hyponatremia; E87.3 Alkalosis; J98.11 Atelectasis; D50.9 Iron deficiency anemia, unspecified; E78.5 Hyperlipidemia, unspecified; E83.52 Hypercalcemia; I11.0 Hypertensive heart disease with heart failure; J44.9 Chronic obstructive pulmonary disease, unspecified; J84.10 Pulmonary fibrosis, unspecified; K57.90 Diverticulosis of intestine, part unspecified, without perforation or abscess without bleeding; M81.0 Age-related osteoporosis without current pathological fracture; Z96.641 Presence of right artificial hip joint; Z96.659 Presence of unspecified artificial knee joint; W18.39XA Other fall on same level, initial encounter; Y93.01 Activity, walking, marching and hiking; F03.90 Unspecified dementia, unspecified severity, without behavioral disturbance, psychotic disturbance, mood disturbance, and anxiety; Y92.002 Bathroom of unspecified non-institutional (private) residence as the place of occurrence of the external cause; Y99.8 Other external cause status
CPT/HCPCS: 36415; 80048; 81003; 82306; 82330; 82607; 82746; 83735; 83930; 83935; 83970; 84100; 84443; 85025; 94640; 97110; 97116; 97162; 97166; 97530; 97535; J1650; J1940; J7626

== ENCOUNTER → 2022-02-23 | Outpatient (CLI) | payer MEDICARE, MEDICAID ==
[~2022-02-23] MED LIST changes: +ALBUTEROL (0.083%) 2.5MG/3ML NEB ONE
== END | disposition home or self-care (01) ==
LOC: OT 10:24
PROVIDERS: ATTEND Internal Medicine Pulmonary Disease
DX: Z20.822 Contact with and (suspected) exposure to COVID-19 (principal)
CPT/HCPCS: 87426

== ENCOUNTER → 2023-03-09 | Outpatient (CLI) | payer MEDICARE, MEDICAID ==
[~2023-03-09] MED LIST changes: -ALBUTEROL (0.083%) 2.5MG/3ML NEB ONE; +POTA-202 PO; -POTA-9 PO
== END | disposition home or self-care (01) ==
LOC: LAB 10:28
PROVIDERS: ATTEND Internal Medicine Critical Care Medicine
DX: I51.7 Cardiomegaly (principal); R06.02 Shortness of breath
CPT/HCPCS: 71046